=== PATIENT | female | born 1990 | race Caucasian/White ===

== ENCOUNTER 2024-03-12 19:54 | Emergency (ER) | payer OTHER, SELFPAY ==
[2024-03-12 19:56] VITALS: BP 156/106
[2024-03-12 22:32] VITALS: BP 150/88
[2024-03-12] MEDS: MOTRIN 400 MG PO (22:39)
[2024-03-12] MEDS: ADACEL 0.5 ML IM (23:14)
--- NOTE | 2024-03-13 00:28 | ED.GENMED ---
History of Present Illness
General
Chief Complaint: Skin Surface Trauma
Source: patient
Exam Limitations: none
Time Seen by Provider: 03/12/24 22:03
Nursing documentation reviewed up to this point in time: agreed with
History of Present Illness
History of Present Illness:
33-year-old female with a past medical history of anxiety, depression, bipolar disorder presents to the emergency department today with concerns of a laceration to the left anterior forearm. She states that her daughter ran outside quickly and she
was running after her to stop her from running out too far when patient ran through the door. Patient states that the door was broken to begin with and states that when she ran into it, pieces of the glass door broke and a large piece of glass cut
her arm. Patient states that she was picking pieces of glass out of her wound. Patient states that she rinsed out the wound. She denies falling after getting cut, denies head trauma, denies neck pain. She denies any other injuries. She notes
burning pain at the site of laceration but denies elbow pain, wrist pain. She states that she did not have her tetanus vaccination within the last 5 years. Patient denies loss of sensation, numbness tingling.
Past History
Past History
ED Past Medical History: Psychiatric, Other (Lumbar disc disease), Other ( x1) and Other (Miscarriage x4)
ED Past Surgical History: None; Negative Gynecological
Social History
Tobacco: Smoker
Alcohol: Occasional
Drug: Marijuana and IVDA
Personal: Single
Living: with family
Employment: Other (Student )
Family History
Family History: Other (Noncontributory)
Review of Systems
Review of Systems
All Other Systems: ROS reviewed and negative except as documented in HPI and ROS
Phy Exam
Physical Exam
Physical Exam:
General: Patient is well appearing and in no acute distress; non-toxic
Skin: Warm and dry, there is a 1 linear 8.5 cm laceration on the left anterior forearm with an adjacent 7 cm laceration. Brisk capillary refill.
Head: Normocephalic, atraumatic
Eyes: Sclera non-icteric. EOMs intact.
Peripheral Vascular: 2+ radial and ulnar pulses.
Cardiac: Regular rate
Pulm: Normal respiratory effort
Musculoskeletal: No bony tenderness to palpation of the left forearm, left elbow, left risk. Rull ROM of bilateral upper extremities.
Neuro: CN II-XII intact, no focal neurologic deficits. Sensation intact.
Psychiatric: Appropriate mood and affect.
Course
Orders/Labs/Results
Orders:
Orders
03/12/24 19:59
CR Forearm - Left 2 View Urgent
Comment:
Reason For Exam: laceration, r/o foreign bodies
03/12/24 22:33
Ibuprofen [Motrin] 400 mg PO NOW STA
03/12/24 22:46
Tetanus/Diphth/Acelpertussis [Adacel] 0.5 ml IM .ONCE ONE
Vital Signs
Initial and Last Documented VS:
Initial Vital Signs
Temp Pulse Resp BP Pulse Ox
97.9 F 116 16 156/106 96
03/12/24 19:56 03/12/24 19:56 03/12/24 19:56 03/12/24 19:56 03/12/24 19:56
Last Documented Vital Signs
Temp Pulse Resp BP Pulse Ox
97.9 F 90 20 150/88 99
03/12/24 19:56 03/12/24 22:32 03/12/24 22:32 03/12/24 22:32 03/12/24 22:32
Procedures
Laceration Closure
Left Anterior Arm:
Status of Wound: clean
Size of Wound in cm: 8.5
Description of Wound Edges: sharp
Preparation: cleaned with saline
Anesthesia: 1% Lidocaine with epi
Revision/Debridement: routine- no revision
Wound exploration: explored to base- no FB and no tendon involvement
Type of Closure: single layer closure and interrupted sutures
Skin Closure Material: 4-0 prolene
Number of sutures: 36
Additional information:
2 lacerations were repaired, one approximately 8.5 cm in length and adjacent laceration 7 cm in length
MDM/Problems Addressed
Differential Diagnosis Includes:
ddx include abrasion, laceration, neurovascular injury
MDM/Problems Addressed:
33-year-old female presents emergency department with a large laceration to left anterior forearm. Patient present in room with family. The wound was thoroughly irrigated. No obvious muscular injury or tendon involvement, no foreign body. The
patient has brisk capillary refill and intact sensation. The wound was repaired with 4-0 Prolene stitches. Patient tolerated the procedure well. Patient stable for discharge. Discussed wound care and return precautions. Patient expressed
understanding. Patient stable for discharge.
Chronic conditions affecting care:
n/A
Acute Exacerbation and/or Progression of Chronic Illness:
N/A
*Pulse Oximetry
Patient hypoxic: no
*Critical Care Note
Total Time (30-74mins, 75-104mins- exclusive of procedures): Not Applicable
Data Reviewed
Review of Other/Old Records Reveals: Records (Reviewed ER physician documentation from 02/26/2021 patient was seen for leg pain, she had negative workup at this time)
Source: patient and records
Prescriptions/Medications Considered But Not Given:
Consider antibiotics however wound was thoroughly irrigated
Patient Management
Escalation/DeEscalation of care consider admission/obs:
Admit not indicated
ED Attending Note
-
Portions of this chart may have been created with voice recognition software.� Occasional wrong word or��sound alike� substitutions may have occurred due to the inherent limitations of voice recognition software.
Discharge Plan
Departure
Patient Disposition: Home (Routine Discharge)
Date of Disposition: 03/13/24
Time of Disposition: 00:25
Patient with high blood pressure during this ER visit?: Yes
Condition: Good
Discharge Problem:
Forearm laceration
Instructions: Wound Care (DC), Laceration Repair With Stitches (DC), BLOOD PRESSURE
Prescriptions:
No Action
buprenorphine-naloxone [Suboxone] 1 EACH film
1 ea sublingual BID
Patient Comments:
12/26/2020: Prescribed BID; last filled 12/25/20, 28 film for 14 days from [facility]
acetaminophen [Tylenol Extra Strength] 500 MG tablet
1,000 mg PO DAILYPRN PRN (Reason: mild pain)
oxycodone 5 MG tablet
5 mg PO Q4HPRN PRN (Reason: breakthrough/severe pain) Qty: 15 0RF
Referrals:
Demetri Wall MD [Family Provider] -
Activity Restrictions/Additional Instructions:
You were seen here in the emergency department to have stitches placed. The stitches will stay in for 10 to 12 days. You can report to your primary care provider, urgent care, or your family doctor to have the stitches removed at that time.
Signs of infection to look out for include purulent drainage from the wound, redness surrounding the wound, fevers or chills, increasing pain.
Please return emergency department should you experience any of the above symptoms or if you experience loss of sensation in your arm, persistent numbness and tingling, pallor, or any other signs or symptoms concerning to you.
Please keep the wound dry for 24 hours. After 24 hours, you can let mild soapy water run over the wound. Please not scrub the wound. For the dressing, you can change it once daily. You can apply a nonadherent pad and subsequently wrapped the
wound with a nonadherent pad over it with Kerlix or Toy wrap.
Interventions
Interventions:
*Risk Screen - Suicide Last Done: 03/12/24 19:56
*General Assessment Last Done: 03/12/24 19:56
*Neglect/Abuse Screening Last Done: 03/12/24 19:56
ED- Fall Risk Assessment Last Done: 03/12/24 22:01
*ED COVID-19 Vaccine History Last Done: 03/12/24 23:59
ED-Skin Assessment Last Done: 03/12/24 22:01
Discharge Date and Time
Print Language: HEBREW
[2024-03-13 00:42] VITALS: BP 122/70
== END 2024-03-13 00:43 | disposition home or self-care (01) ==
LOC: EMR 19:54
PROVIDERS: EMERGENCY PHYSICIAN Emergency Medicine; FAMILY PHYSICIAN Family Medicine
DX: S51.812A Laceration without foreign body of left forearm, initial encounter (principal); W22.09XA Striking against other stationary object, initial encounter; Z23 Encounter for immunization; F31.9 Bipolar disorder, unspecified; F41.8 Other specified anxiety disorders
CPT/HCPCS: 99283; 12004; 90471; 73090; 90715